=== PATIENT | male | born 1955 | race Asian ===

== ENCOUNTER 2019-09-26 18:56 | Emergency (ER) | payer OTHER, BC ==
[~2019-09-26] VITALS: Ht 170.2 cm; Wt 63.5 kg
[2019-09-26 19:39] VITALS: Ht 170.2 cm; Wt 63.5 kg
[2019-09-26 21:23] VITALS: BP 143/88
== END 2019-09-26 21:50 | disposition home or self-care (01) ==
LOC: ED 18:56
DX: S29.012A Strain of muscle and tendon of back wall of thorax, initial encounter (principal); S29.011A Strain of muscle and tendon of front wall of thorax, initial encounter; I10 Essential (primary) hypertension; E11.9 Type 2 diabetes mellitus without complications; Z98.890 Other specified postprocedural states; V64.5XXA Driver of heavy transport vehicle injured in collision with heavy transport vehicle or bus in traffic accident, initial encounter; Y93.I9 Activity, other involving external motion; Y92.411 Interstate highway as the place of occurrence of the external cause; Y99.8 Other external cause status
CPT/HCPCS: 72072